=== PATIENT | female | born 1940 | race Caucasian/White ===

== ENCOUNTER 2022-08-21 07:33 | Day surgery (SDC) | payer MEDICARE ==
[2022-08-16 11:50] LABS: HEMATOCRIT 41.1 % (36-48); MEAN CORPUSCULAR HEMOGLOBIN 32.3 pg (27.0-33.0); MEAN CORPUSCULAR HGB CONC 31.9 g/dL (32.0-36.0); MEAN CORPUSCULAR VOLUME 101.2 fL (79-99); RED BLOOD CELL COUNT(AUTO) 4.06 MIL/uL (4.00-5.50); WHITE BLOOD COUNT (AUTO) 13.6 K/uL (4.8-10.8)
[2022-08-16 11:51] LABS: BASOPHILS % (AUTO) 0.2 % (0.0-5.0); EOSINOPHILS % (AUTO) 0.3 % (0.0-8.0); LYMPHOCYTES % (AUTO) 10.5 % (21.0-51.0); MONOCYTES % (AUTO) 7.7 % (3.0-13.0); NEUTROPHILS % (AUTO) 80.9 % (40.0-77.0); PLATELET COUNT (AUTO) 180 K/uL (130-400)
[2022-08-16 12:00] LABS: CREATININE 0.8 mg/dL (0.5-1.5); POTASSIUM 4.6 mmol/L (3.5-5.1)
[2022-08-20 10:04] VITALS: BP 148/84
[~2022-08-21] VITALS: Ht 160 cm; Wt 62.4 kg
[2022-08-21] VITALS (18 sets, daily range): BP systolic 138–185; BP diastolic 72–98
[~2022-08-21 07:33] MED LIST: ADV250 IH; ALLO300T2 PO; ANAS1TAB49 PO; BACITRACIN 28.4 GM OINT TP ONE; CALCIUM+D PO; CYAN100099 PO; EPINEPHRINE 1 MG/ML 30ML VIAL IJ ONE; ESCI10TA PO; FEXO180T94 PO; FOLATE PO; FOLIC ACID PO; FURO-151 PO; GABA600T10 PO; HYDR5TAB14 PO; HYDROCORTISONE PO; LACTATED RINGERS 1000ML 1,000 ML IV ONE; LEVO100T4 PO; LEVO50TA4 PO; LISI20TA24 PO; MEMA10TA11 PO; MOME17SP4 NS; MONT-39 PO; MVIT PO; PANT40TA54 PO; POTA-79 PO; RALO60TA PO; RANO500T2 PO; ROSU10TA22 PO; TOLT4CAP PO
[2022-08-21] MEDS ORDERED: DEXAMETHASONE SOD PHOSPHATE 10MG/ML 1ML VIAL ONE (07:44)
[2022-08-21] MEDS ORDERED: ONDANSETRON 4MG INJ ONE (07:44)
[2022-08-21] MEDS ORDERED: SUCCINYLCHOLINE CHLORIDE 20 MG/ML 10 ML VIAL ONE (07:44)
[2022-08-21] MEDS ORDERED: LIDOCAINE PF 100MG/5ML (2%) SYRINGE 5ML ONE (07:44)
[2022-08-21] MEDS ORDERED: GLYCOPYRROLATE 1 MG/5 ML SYRINGE ONE (07:44)
[2022-08-21] MEDS ORDERED: FENTANYL CITRATE PF 50 MCG/1 ML 2ML VIAL ONE (07:45)
[2022-08-21] MEDS ORDERED: PROPOFOL 10 MG/ML 20ML VIAL IV ONE (07:45)
[2022-08-21] MEDS ORDERED: NEOSTIGMINE 5MG/5ML SYR IV ONE (07:45)
[2022-08-21] MEDS ORDERED: ROCURONIUM 10MG/1ML SYR 10 MG/ML ML ONE (07:45)
[2022-08-21] MEDS ORDERED: LIDOCAINE HCL-MPF 2% 5ML VIAL ONE (07:47)
[2022-08-21] MEDS ORDERED: LIDOCAINE 1%-EPI 1:100,000 20 ML VIAL IJ SCH (08:00)
[2022-08-21] MEDS ORDERED: ARTIFICIAL TEARS 3.5 GM OINTMENT ONE (08:17)
[2022-08-21] MEDS ORDERED: DEXAMETHASONE SOD PHOSPHATE 4 MG/ML 1ML VIAL ONE (09:19)
[2022-08-21] MEDS ORDERED: HYDRALAZINE 20MG/ML VIAL ONE (09:45)
== END 2022-08-21 11:30 | disposition home or self-care (01) ==
LOC: DAH 07:33
PROVIDERS: ATTEND Otolaryngology Plastic Surgery within the Head & Neck
DX: J32.8 Other chronic sinusitis (principal); J33.8 Other polyp of sinus; J34.89 Other specified disorders of nose and nasal sinuses; J34.3 Hypertrophy of nasal turbinates; I25.10 Atherosclerotic heart disease of native coronary artery without angina pectoris; I10 Essential (primary) hypertension; M81.0 Age-related osteoporosis without current pathological fracture; E27.1 Primary adrenocortical insufficiency; Z79.899 Other long term (current) drug therapy; Z98.890 Other specified postprocedural states; Z79.01 Long term (current) use of anticoagulants
CPT/HCPCS: 80048; 85025; 87426; 36415; 31253; 31267; 31287; 30802; 88311; 88305; 88312; J1100 ×2; A4663 ×2; A4649; J7120; J3010; J3490 ×2; J2710; J0330; J0171; J2001; J0360; J2704; J2405; A4215 ×3; A6402; A4222 ×2; A4216; A4606; A4223 ×4; A4221 ×2; 93005